=== PATIENT | female | born 1945 | race Caucasian/White ===

== ENCOUNTER → 2017-04-05 | Outpatient (CLI) | payer MEDICARE ==
[~2017-04-05] MED LIST: AMOXICILLIN 50500 MG PO; ASPIRIN 81MG TA81 MG PO; ATORVASTATIN CA40 MG PO; BACTROBAN2% TP; CALTRATE 600 +1 TA1 PO; CLINDAMYCIN HC300 MG PO; DARVOCET-N6 EACH/PAK OR; EVISTA60 MG PO; HYDROCHLOROTHIA1 TA2 PO; JANUMET 50-1,01 EACH PO; JANUMET PO; LEVAQUIN500 MG PO; LEVEMIR FLEX100 U/ML SC; MEDROL 4MG. DOSE4 MG PO; NORVASC 2.5MG.2.5 MG PO; PHENERGAN 12.12.5 M1 PO; SULFACETAMIDE S15 M1 OP; VITAMIN C500 M1 PO; VITAMIN D1000 IU PO; ZITHROMAX Z-PA250 M1 PO
[2017-04-05 13:41] LABS: BUN 15 mg/dL (7-18)
[2017-04-05 13:42] LABS: GFR (ESTIMATED) 83 ML/MIN (59-)
== END ==
LOC: LAB 13:16
PROVIDERS: Emergency Medicine
DX: E11.9 Type 2 diabetes mellitus without complications (principal)